=== PATIENT | female | born 1995 | race Caucasian/White ===

== ENCOUNTER 2022-04-04 11:09 | Emergency (ER) | payer BC, OTHER ==
[2022-04-04 12:01] VITALS: BP 143/87
[2022-04-04] MEDS ORDERED: IBUP800T27 PO (12:03)
[2022-04-04] MEDS ORDERED: AUG875T PO (12:03)
== END 2022-04-04 12:20 | disposition home or self-care (01) ==
LOC: ER 11:09
DX: H66.93 Otitis media, unspecified, bilateral (principal); E66.01 Morbid (severe) obesity due to excess calories; F41.9 Anxiety disorder, unspecified; Z90.89 Acquired absence of other organs